=== PATIENT | male | born 1980 | race Caucasian/White ===

== ENCOUNTER 2016-11-27 18:45 | Emergency (ER) | payer OTHER ==
[~2016-11-27] VITALS: Ht 185.4 cm; Wt 93.4 kg
[~2016-11-27 18:45] MED LIST: HYDROXYZINE HCL50 MG PO; KEPPRA XR500 MG PO; ZOLOFT100 MG PO
[2016-11-27] MEDS ORDERED: OMEPRAZOLE20 MG PO (22:43)
[2016-11-27] MEDS ORDERED: DICYCLOMINE HCL20 MG PO (22:43)
== END 2016-11-27 23:05 | disposition home or self-care (01) ==
LOC: ED 18:45
DX: R10.84 Generalized abdominal pain (principal); F32.9 Major depressive disorder, single episode, unspecified; Z90.49 Acquired absence of other specified parts of digestive tract; Z79.899 Other long term (current) drug therapy
CPT/HCPCS: 74177; 80053; 81001; 83690; 85025; 96361; 96372; 96374; 96375; 96376; 99284; J0500; J1885; J2405; J7030; Q9967

== ENCOUNTER 2016-11-29 20:54 | Emergency (ER) | payer OTHER ==
[~2016-11-29] VITALS: Ht 185.4 cm; Wt 93.4 kg
[~2016-11-29 20:54] MED LIST changes: +DICYCLOMINE HCL20 MG PO; +OMEPRAZOLE20 MG PO
[2016-11-29] MEDS ORDERED: ENULOSE10 GM/15 M PO (21:05)
[2016-11-29] MEDS ORDERED: DICYCLOMINE HCL20 MG PO ×2 (21:08)
[2016-11-29] MEDS ORDERED: ULTRAM50 MG PO (21:09)
== END 2016-11-29 23:02 | disposition home or self-care (01) ==
LOC: ED 20:54
DX: K59.00 Constipation, unspecified (principal); F32.9 Major depressive disorder, single episode, unspecified; Z79.899 Other long term (current) drug therapy
CPT/HCPCS: 80053; 81001; 83690; 85025; 96361; 96374; 99283; J2405; J7030

== ENCOUNTER 2016-12-01 11:05 | Inpatient (IN) | payer OTHER ==
[~2016-12-01] VITALS: Ht 185.4 cm; Wt 96.2 kg
[~2016-12-01 11:05] MED LIST changes: +ENULOSE10 GM/15 M PO; +ULTRAM50 MG PO
--- NOTE | 2016-12-01 12:17 | NUR ---
EMESIS APPROX 50ML YELLOWISH FLUID. 1ST LITER INFUSED 2ND LITER HUNG AT TKO
--- NOTE | 2016-12-01 13:22 | NUR ---
12/01/16 1322 Alexandria Banda 1316-PATIENT ARRIVED TO PACU ON 3L NC O2 SAT 97% PATIENT REACTIVE TO VOICE DENIES PAIN. DROWSY. FALLS BACK ASLEEP. ABDOMEN SOFT. TEMP 99.4 GUARDS AT BEDSIDE. PLAN FOR PATIENT TO BE ADMITTED TO ROOM 113
--- NOTE | 2016-12-01 15:04 | NUR ---
PATIENT TO FLOOR FROM DAY SURGERY @1430. UP TO BATHROOM, ATTEMPTED TO VOID, STILL DUE TO VOID. VS STABLE. PATIENT COMPLAINTS OF HEADACHE AND STOMACH HURTING, 5/10 ON PAIN SCALE. HR REGULAR. ACTIVE BOWEL TONES THROUGHOUT. [facility] GUARDS AT BEDSIDE. PATIENT APPEARS ALERT AND ORIENTED. IV FLUIDS INFUSING. PATIENT NOW UP TO BATHROOM ATTEMPTING TO VOID.
--- NOTE | 2016-12-01 15:20 | NUR ---
PATIENT ABLE TO VOID, 200 ML OF CLEAR YELLOW URINE. PATIENT COMPLAINS OF STOMACH HURTING 5/10 AND EMESIS OF GREEN BILE SUBSTANCE. ADMINISTERED 12.5 MG IV PHENERGAN, DILUTED IN 20ML OF NS AND INFUSED ON SECONDARY PUMP OVER 10 MINUTES. PATIENT NOW RESTING IN BED, CONVERSING EASILY WITH GUARDS.
--- NOTE | 2016-12-01 18:30 | NUR ---
PATIENT TO FLOOR FROM PACU TODAY FOR FURTHER TESTING SECONDARY TO PRESENT SYMTPOMS. PATIENT IS AFEBRILE, COMPLAINS OF STOMACH PAIN AND HEADACHE, ONE EMESIS OF BILE CONTENTS. ADMINISTERED IV PHENERGAN, NAUSEA VOMITTING RESOLVED. CONTINUED TO COMPLAIN OF HEADACHE, NEW ORDER FOR TYLENOL. D5LR @85ML/HR INFUSING CONTINUIOUSLY. HAS RECIEVED 2L NS BOLUS TODAY, AND HAD AN EGD THAT WAS NEGATIVE. STBY WITH GUARDS IN ROOM, SKIN IN GOOD CONDITION WHERE SHACKLES LOCATED, NO REDNESS. ALERT AND ORIENTED. IV KEPPRA FOR SEIZURE DISORDER.
--- NOTE | 2016-12-01 19:36 | NUR ---
RECEIVED REPORT FROM DAY SHIFT RN. PATIENT IS RESTING IN BED WATCHING TV. PATIENT IS REQUESTING TYLENOL FOR A HEADACHE. WILL BRING TYLENOL IN SOON PHARMACY VERIFIES. PATIENT HAS X2 GUARDS IN THE ROOM AND IS IN 4PT SHACKLES. PATIENT DENIES ANY FURTHER NEEDS AT THIS TIME. CALL LIGHT IN REACH.
--- NOTE | 2016-12-01 20:11 | NUR ---
PATIENT ASSESMENT COMPLETED. PATIENTS EVENING MEDICATIONS GIVEN PER ORDER. PATIENT COMPLAINS OF CHILLS. PATIENT COMPLAINS OF NAUSEA. PATIENT IS NOT QUITE DUE FOR NAUSEA MEDICATION. PATIENT IS REQUESTING IT WHEN IT IS DUE. PATIENT HAS GUARDS AT THE BEDISE. PATIENT IS BELLY CHAINED AND X3 EXTREMETIES RESTRAINED IN CUFFS. PATIENT DENIES ANY FURTHER NEEDS. CALL LIGHT IS WITHIN REACH.
--- NOTE | 2016-12-01 20:42 | NUR ---
PATIENT GIVEN PRN NAUSEA MEDICATION PER ORDER. PATIENT DOES NOT HAVE ANY EMESIS BUT IS DRY HEAVING AT THIS TIME. PATIENT DENIES ANY FURTHER NEEDS. CALL LIGHT IN REACH.
--- NOTE | 2016-12-01 21:32 | NUR ---
ALERTED BY OFFICIAL COURT INTERPRETER THAT PATIENT HAS AN ELEVATED TEMP. PATIENT GIVEN PRN TYLENOL. PLACED CALL TO DR BOND NEW ORDERS PLACED AND WILL PUT INTO AFFECT. PLACED CALL TO DR LLANES. DR. LLANES GAVE A NEW VERBAL ORDER, VERIFIED PHONE ORDER USING THE READBACK METHOD. PLACED CALL TO LAB FOR THEM TO COME AND DRAW BLOOD CULTURES.
--- NOTE | 2016-12-01 22:45 | NUR ---
REASSESED PATIENTS TEMPERATURE. PATIENTS CURRENT TEMPERATURE IS 100. WILL CONTINUE TO MONITOR. PATIENT DENIES ANY PAIN OR NAUSEA AT THIS TIME. PATIENT STATES "I FINALLY FEEL OK, I AM JUST TIRED NOW" PATIENT GIVEN JELLO. PATIENT DENIES ANY FURTHER NEEDS. CALL LIGHT IS WITHIN REACH.
--- NOTE | 2016-12-02 00:30 | NUR ---
PATIENT IS RESTIG IN BED WITH EYES CLOSED, RR 18. PATIENTS BREATHING IS EVEN AND UNLABORED. GUARDS REMAIN AT THE BEDSIDE.
--- NOTE | 2016-12-02 02:15 | NUR ---
PATIENT RESTING IN BED. PATIENTS VITALS TAKEN AND RECORDED. PATIENTS TEMP IS 98.7. PATIENT DENIES ANY PAIN OR NAUSEA AT THIS TIME. GUARDS REMAIN IN THE ROOM.
--- NOTE | 2016-12-02 04:46 | NUR ---
PATIENT IS RESTING IN BED WITH EYES CLOSED, RR 17. GUARDS REMAIN IN THE ROOM. CALL LIGHT IN REACH.
--- NOTE | 2016-12-02 05:51 | NUR ---
PATIENT RESTED WELL THROUGHOUT THE SHIFT. PATIENT RECEIVED X1 NAUSEA MEDICATION. PATIENT RECEIVED TYLENOL X1 FOR HEADACHE AND ELEVATED TEMP. PATIENT IS AAOX3 AND USES CALL LIGHT APPROPRIATELY. PATIENT HAS SCDS ON. PATIENT IS ON A CLEAR DIET. PATIENT HAS GUARDS AT THE BEDSIDE AND HAS CUFFS IN PLACE ON X3 EXTREMITIES. PATIENT IS A SBA AND IS STEADY ON HIS FEET.
--- NOTE | 2016-12-02 06:35 | NUR ---
PATIENTS VITALS TAKEN AND RECORDED. PATIENT DENIES ANY NAUSEA. PATIENT DENIES ANY PAIN. PATIENT STATES "MY STOMACH JUST ACHES, IT DOESNT HURT" PATIENT GIVEN JUICE PRE REQUEST. PATIENT DENIES ANY NEEDS AT THIS TIME. CALL LIGHT IN REACH.
--- NOTE | 2016-12-02 10:15 | NUR ---
PATIENT UP IN BED, HEADACHE RESOLVED. COMPLAINTS OF DULL ACHE IN LOWER MID QUADRANT. PROVIDED PATIENT WITH HEAT PAD. MORNING MEDICAITONS ADMINISTERED. PATIENT TOLERATING CLEAR LIQUIDS WELL. GOOD URINE OUTPUT.
--- NOTE | 2016-12-02 10:26 | NUR ---
PT IS RESTING IN BED CORRECTIONAL OFFICERS IN ROOM. PT ASKED FOR MORE JUICE. PT SAID HE WOULD THINK ABOUT TAKING A SHOWER WILL RECHECK LATER
--- NOTE | 2016-12-02 13:13 | NUR ---
PATIENT RESTING WITH EYES CLOSED, DISCUSSED IMPORTANCE OF AMBULATING IN HALLS. PATIENT AND GAURDS AGREED. CONTINUES TO COMPLAIN OF DULL ACHE IN LOWER ABDOMEN. VS STABLE. LUNG SOUNDS CLEAR.
--- NOTE | 2016-12-02 13:41 | NUR ---
PATIENT UP AMBULATING IN HALLS WITH GUARDS, APPEARS TO BE TOLERATING ACTIVITY WELL. WILL SHOWER, AND VERBALIZES WILL WALK THIS AFTERNOON. VS STABLE, AFEBRILE.
--- NOTE | 2016-12-02 14:27 | NUR ---
PT HAS SHOWERED AND IS NOW BACK IN BED RESTING. BOTH CORRECTIONAL OFFICERS IN ROOM. PT DID NOT NEED ANYTHING ELSE AT THE MOMENT
[2016-12-02] MEDS ORDERED: KEPPRA500 MG PO (15:02)
[2016-12-02] MEDS ORDERED: ZOFRAN4 MG PO (15:04)
[2016-12-02] MEDS ORDERED: CARAFATE1 GM PO (15:07)
--- NOTE | 2016-12-02 15:09 | NUR ---
MED REC COMPLETE
--- NOTE | 2016-12-02 17:45 | NUR ---
PATIENT UP TO BATHROOM, VOIDING WELL. TOLERATED FULL LIQUIDS WELL, ATE ICE-CREAM AND ABOUT 100 ML OF TOMATO SOUP, JUICE AND PUDDING. STATES " MY STOMACH STILL HURTING, AND MY HEAD". DISCUSSED IMPORTANCE OF AMBULATING IN HALLS, PATIENT STATED " WHY SO I COULD HURT MORE". THEN PROVIDED INFORMATION ON IMPORTANCE OF STAYING MOBILE WHILE ADMITTED TO HOSPITAL DECREASE RISK OF PNEAMONIA. VS STABLE. BOWEL TONES ACTIVE. HAS NOT HAD BM YET.
--- NOTE | 2016-12-02 18:53 | NUR ---
PT IS RESTING IN BED SAFELY WITH BOTH CORRECTIONAL OFFICERS IN THE ROOM. PT DID NOT NEED ANYTHING AT THE MOMENT
--- NOTE | 2016-12-02 19:43 | NUR ---
RECEIVED REPORT FROM DAY SHIFT RN. PATIENT IS AMBUATING IN THE HALLWAY. PATIENT IS ACCOMPANIED BY X2 GUARDS. PATIENT DENIES ANY PAIN OR NAUSEA.
--- NOTE | 2016-12-02 21:15 | NUR ---
PATIENT ASSESMENT COMPLETED. PATIENT RATES PAIN AT A 2/10. PATIENT DESCRIBES PAIN AN "ACHE" PATIENT DENIES THE NEED FOR ANY PAIN MEDICATION. PATIENT DENIES ANY NAUSEA. PATIENTS EVENING MEDICATIONS GIVEN PER ORDER. PATIENT IS A SBA AND IS STEADY ON HIS FEET. PATIENT REMAINS RESTRAINED X3 EXTREMETIES PER [facility] POLICY. X2 GUARDS REMAIN IN THE ROOM. PATIENT HAS SCDS ON. PATIENT DENIES ANY FURTHER NEEDS AT THIS TIME. CALL LIGHT IS WITHIN REACH.
--- NOTE | 2016-12-02 23:15 | NUR ---
PATIENT IS RESTING IN BED WITH EYES CLOSED, RR 17. GUARDS X2 IN THE ROOM. CALL LIGHT IS WITHIN REACH.
--- NOTE | 2016-12-02 23:19 | NUR ---
PATIENTS VITALS TAKEN AND RECORDED. PATIENT DENIES ANY PAIN OR NAUSEA. PATIENT DENIES ANY NEEDS AT THIS TIME. CALL LIGHT IS WITHIN REACH.
--- NOTE | 2016-12-03 01:03 | NUR ---
PATIENTS VITALS TAKEN AND RECORDED. PATIENT DENIES ANY PAIN OR NAUSEA. PATIENT DENIES ANY NEEDS AT THIS TIME. CALL LIGHT IS WITHIN REACH.
--- NOTE | 2016-12-03 01:54 | NUR ---
PATIENT GIVEN PRN TYLENOL FOR 5/10 ABD PAIN. PATIENT DENIES ANY FURTHER NEEDS. CALL LIGHT IS WITHIN REACH.
--- NOTE | 2016-12-03 03:12 | NUR ---
PATIENT IS RESTING IN BED WITH EYES CLOSED, RR 18. CALL LIGHT IN REACH.
--- NOTE | 2016-12-03 04:42 | NUR ---
PATIENT RESTED WELL THROUGHOUT THE SHIFT. PATIENT DENIED ANY NAUSEA. PATIENT RECEIVED X1 PRN TYELNOL FOR ABD PAIN. PATIENT IS ON FULL LIQUID DIET AND IS TOLERATING IT WELL. PATIENT IS A SBA AND IS STEADY ON HIS FEET. PATIENT HAS ON SCDS. PATIENT IS AAO X3. PATIENT IS RESTRAINED X3 PER [facility] POLICY AND X2 GUARDS REMAIN IN THE ROOM.
--- NOTE | 2016-12-03 06:33 | NUR ---
PATIENTS VITALS TAKEN AND RECORDED. PATIENT DENIES ANY PAIN OR NAUSEA AT THIS TIME. CALL LIGHT IS WITHIN REACH.
--- NOTE | 2016-12-03 08:10 | NUR ---
PATIENT UP TO RESTROOM AT THIS TIME. NO OTHER REQUESTS.
--- NOTE | 2016-12-03 08:52 | NUR ---
ATE 25% OF BREAKFAST, STATES " I AM JUST TAKING IT SLOW". PATIENT APPEARS COMFORTBLE, NO GRIMACE TO FACE. COMPLAINS OF PAIN 5/10 ON PAIN SCALE IN LOWER ABDOMEN. LUNG SOUND CLEAR, BOWEL TONES ACTIVE. PATIENT IS PASSING GAS. DENIES ANY CONSTIPATION, STATES " YESTERDAY AND TODAY IS THE ONLY REAL FOOD I HAVE HAD IN OVER A WEEK, SO I DON'T THINK THERE IS ANYTHING TO POOP." SKIN IN GOOD CONDITION AROUND THE HANDCUFFS, 2 GAURDS PRESENT AT BEDSIDE.
[2016-12-03] MEDS ORDERED: AMOX TR-K CLV1 EAC1 PO (09:41)
[2016-12-03] MEDS ORDERED: NAPROXEN500 MG PO (09:44)
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
--- NOTE | 2016-12-10 10:32 | OR ---
[facility] [address], [place] [address] Signed DATE OF SERVICE: 12/01/2016 PREOPERATIVE DIAGNOSES: Fever, abdominal pain, evaluation thus far negative. POSTOPERATIVE DIAGNOSES: Hiatal hernia without associated esophagitis. No evidence of gastritis, duodenitis, ulcer, or neoplasm. PROCEDURE: Esophagogastroduodenoscopy with biopsy. SURGEON: Linda Llanes MD. ANESTHESIA: Intravenous sedation, fentanyl 100 mcg, and Versed at 5 mg. INDICATION: This 36-year-old man, is a prisoner at [facility], and a patient of Dr. Dajuan Pineda. I was called by Dr. Pineda yesterday as he has been managing the patient in the [facility] with IV fluids as he has been unable to tolerate oral intake in any way. He has been in the emergency room twice. His symptoms began last Monday (this is ). He has had no blood per rectum or hematemesis but simply cannot keep down any foods or any oral intake essentially at all. Dr. Pineda asked that upper endoscopy be performed and if necessary admission to the hospital for further evaluation. The patient does have past history of seizure disorder for which he takes Keppra. He has been noted to have a temperature elevation to 102, while in this [facility], as well as relative low urine output. IV fluids have been administered. We will proceed with upper endoscopy to better characterize the upper abdominal symptom s though he may require hospitalization afterward for further management and evaluation. He understands the risks of upper endoscopy including but not limited to bleeding, infection, perforation, and so on . FINDINGS: Esophagus was normal. There was a hiatal hernia but no sign of esophagitis or Smith's epithelium associated with it. The stomach itself looked reasonably normal. There is no evidence of ulceration. The pylorus is normal. Scope was passed within the duodenum, which was normal. Biopsies were taken of the duodenum, stomach, and esophagus. BAKARI test biopsy was negative. PROCEDURE IN DETAIL: The patient brought to the endoscopy suite and placed in lateral decubitus position, left side down. Hurricaine hypopharyngeal spray anesthesia was given. Intravenous Electronically Signed By: LINDA LLANES MD 12/10/16 1032 PATIENT NAME: DUSTIN VENTURA OPERATIVE REPORT DATE OF : 84 PHYSICIAN: LINDA LLANES MD REPORT #: [id number] REPORT IS CONFIDENTIAL AND NOT TO BE RELEASED WITHOUT AUTHORIZATION [facility] [address], [place] [address] Signed sedation with fentanyl and Versed with full cardiopulmonary monitoring was undertaken. A bite block was placed and an Olympus video upper endoscope passed in the hypopharynx. The vocal cords were normal. The scope was advanced to the esophagus and throughout its length it was normal. Scope was passed into the stomach. There was a fair amount of bile within the stomach. This was suctioned free. There was no sign of neoplasm or ulceration. Rugal folds were normal as was the antral motility. The pylorus was normal. The scope was passed through it into the duodenum, which was normal. Biopsies were then taken of the duodenum and subsequently the stomach for both BAKARI and pathologic testing. Retroflex view was undertaken showing a hiatal hernia. The scope was withdrawn to the distal esophagus. I saw no sign of inflammation, neoplasm varices, or other problem. Biopsies were obtained anyway. The scope was carefully withdrawn. There were no other findings or concern. The patient was taken to recovery room in goo d condition. CONCLUDING DIAGNOSES: No obvious lesion on esophagus, stomach, or duodenum to account for symptoms. PLAN: Given his dehydration, his ongoing fever, and other issues including low back pain, despite a normal exam showing no sign of tenderness or lesion. He should probably be best admitted to the hospital given fluid resuscitation and further evaluation. This was already deemed acceptable for Dr. Pineda, his primary physician at the [facility]. MD ULICES Wong/Malissal /[id number] cc: Dajuan Pineda MD [facility] Electronically Signed By: LINDA LLANES MD 12/10/16 1032 PATIENT NAME: DUSTIN VENTURA OPERATIVE REPORT DATE OF : 84 PHYSICIAN: LINDA LLANES MD REPORT #: [id number] REPORT IS CONFIDENTIAL AND NOT TO BE RELEASED WITHOUT AUTHORIZATION
== END 2016-12-03 11:00 | disposition home or self-care (01) | DRG 392 ==
LOC: DS 11:05 → OPS 11:05 → DS 14:10 → MS 14:10 → OPS 14:11 → MS 12-03 11:00
PROVIDERS: ADMIT Surgery
PROC: 0DB38ZX Excision of Lower Esophagus, Via Natural or Artificial Opening Endoscopic, Diagnostic (ICD-10-PCS; 2016-12-01)
PROC: 0DB68ZX Excision of Stomach, Via Natural or Artificial Opening Endoscopic, Diagnostic (ICD-10-PCS; 2016-12-01)
PROC: 0DB98ZX Excision of Duodenum, Via Natural or Artificial Opening Endoscopic, Diagnostic (ICD-10-PCS; principal; 2016-12-01 12:00)
DX: A08.4 Viral intestinal infection, unspecified (principal); J01.10 Acute frontal sinusitis, unspecified; B96.89 Other specified bacterial agents as the cause of diseases classified elsewhere; E86.0 Dehydration; E66.9 Obesity, unspecified; M54.5 Low back pain; K44.9 Diaphragmatic hernia without obstruction or gangrene; G40.909 Epilepsy, unspecified, not intractable, without status epilepticus; S06.9X0S Unspecified intracranial injury without loss of consciousness, sequela; V29.9XXS Motorcycle rider (driver) (passenger) injured in unspecified traffic accident, sequela; Z68.28 Body mass index [BMI] 28.0-28.9, adult; Z79.899 Other long term (current) drug therapy; Z87.891 Personal history of nicotine dependence
CPT/HCPCS: 36415; 80053; 81001; 82247; 82465; 83615; 84100; 84478; 84550; 85025; 87040; 99152; 99153; J1720; J1953; J2250; J2550; J3010; J7120

== ENCOUNTER 2017-02-07 12:09 | Day surgery (SDC) | payer OTHER ==
[~2017-02-07] VITALS: Ht 185.4 cm; Wt 102.1 kg
[~2017-02-07 12:09] MED LIST changes: +AMOX TR-K CLV1 EAC1 PO; +CARAFATE1 GM PO; +KEPPRA500 MG PO; +NAPROXEN500 MG PO; +ZOFRAN4 MG PO
[2017-02-07] MEDS ORDERED: BENTYL10 MG PO (12:33)
--- NOTE | 2017-02-07 14:09 | NUR ---
02/07/17 1409 Brandt [place]en[place] PATIENT SIPPING WATER, O2 TITRATED TO ROOM AIR.
--- NOTE | 2017-02-11 13:40 | OR ---
[facility] [address], [place] [address] Signed DATE OF PROCEDURE: 02/07/17 PREOPERATIVE DIAGNOSES Left-sided abdominal pain and left low back pain. POSTOPERATIVE DIAGNOSIS Normal colon to cecum and normal ilium. PROCEDURE Total colonoscopy to cecum with intubation of the ileum and biopsies. SURGEON: Linda Llanes MD. ANESTHESIA: Intravenous sedation, Fentanyl 100 mcg and Versed 13 mg. INDICATION This 36-year-old white man is a prisoner at [facility] and a patient of Dr. Dajuan Pineda. He has had left-sided abdominal pain and some left lower back pain. He had undergone a CT scan on November 27, 2016, with severe nonlocalized abdominal pain, the CT scan was normal. He was hospitalized by me briefly for findings suggestive of bowel obstruction in the past as he had outpatient upper endoscopy with subsequent admission for protracted nausea, vomiting, and dehydration. The upper endoscopy confirmed no ulcer or other abnormalities. His left lower abdominal pain as well as back pain is of note. He does have seizure disorder for which he takes Keppra. His last seizure was within the past year. He does have family history of Crohn's disease as well as colon cancer in aunts. He is admitted at this time to undergo colonoscopy. He understand the risks of bleeding, infection, and perforation. FINDINGS The prep was good. Complete colonoscopy was undertaken of the cecum. Intubation of the ileum was accomplished as well. None of the areas of the ilium or colon or rectum appeared abnormal. Biopsies were taken to assess for occult colitis. DESCRIPTION OF PROCEDURE The patient was brought to the endoscopy suite and placed in lateral decubitus position. Given intravenous sedation to the point of slurred speech and nystagmus. Digital rectal examination was normal. An Olympus video colonoscope was passed into the rectum and manipulated throughout the colon. Ultimately, the cecum was intubated. The ileocecal valve was identified as normal. Scope was passed through to the end of the ileum. The ilium appeared normal with Electronically Signed By: LINDA LLANES MD 02/11/17 1340 PATIENT NAME: DUSTIN VENTURA OPERATIVE REPORT DATE OF : 84 PHYSICIAN: LINDA LLANES MD REPORT #: [id number] REPORT IS CONFIDENTIAL AND NOT TO BE RELEASED WITHOUT AUTHORIZATION [address] [address] Signed some submucosal lymphoid patches as usual. Biopsies were taken of the ileum. The scope was withdrawn to the cecum and the scope carefully withdrawn. Biopsies were taken of the right colon and later the rectum. Withdrawal of the scope throughout the colon showed no sign of polyps, diverticular formation, colitis cancer, or other abnormality. Retroflexed view of the rectum was normal as well. The scope was removed and the patient was taken to recovery room in good condition. CONCLUDING DIAGNOSIS Uncertain etiology of his left-sided abdominal and left lower back pain. Evaluation at this time for chronic left lower back pain might be considered by Dr. Pineda. MD ULICES Wong/Channing /[id number] cc: Dajuan Pineda MD Electronically Signed By: LINDA LLANES MD 02/11/17 1340 PATIENT NAME: DUSTIN VENTURA OPERATIVE REPORT DATE OF : 84 PHYSICIAN: LINDA LLANES MD REPORT #: [id number] REPORT IS CONFIDENTIAL AND NOT TO BE RELEASED WITHOUT AUTHORIZATION
== END 2017-02-07 14:30 | disposition home or self-care (01) ==
LOC: OPS 12:09 → DS 13:00 → OPS 14:30
PROVIDERS: Surgery
PROC: 0DBP8ZX Excision of Rectum, Via Natural or Artificial Opening Endoscopic, Diagnostic (ICD-10-PCS; 2017-02-07)
PROC: 0DBK8ZX Excision of Ascending Colon, Via Natural or Artificial Opening Endoscopic, Diagnostic (ICD-10-PCS; 2017-02-07)
PROC: 0DBB8ZX Excision of Ileum, Via Natural or Artificial Opening Endoscopic, Diagnostic (ICD-10-PCS; principal; 2017-02-07 13:00)
DX: R10.32 Left lower quadrant pain (principal); M54.5 Low back pain; Z90.49 Acquired absence of other specified parts of digestive tract; G40.909 Epilepsy, unspecified, not intractable, without status epilepticus
CPT/HCPCS: J2250; J3010; J7120